=== PATIENT | female | born 1960 | race Caucasian/White ===

== ENCOUNTER 2022-11-03 18:53 | Emergency (ER) | payer OTHER, SELFPAY ==
--- OUTSIDE RECORDS SUMMARY | 2022-11-03 18:56 | XMS REPORT | Continuity of Care Document ---
:[address] [facility] t Address [address] [place] [address] Care Team Providers Name Role Phone Unavailable Unavailable Unavailable Problems This patient has no known problems. Allergies, Adverse Reactions, Alerts This patient has no known allergies or adverse reactions. Medications This patient has no known medications. Procedures This patient has no known procedures. Encounters Start End Encounter Admission Attending Care Care Encounter Source Date/Time Date/Time Type Type Clinicians Facility Department ID 2021-01-06 2021-01-06 Outpatient [facility] [id number] [place] 04:21:00 04:21:00 [facility] Results This patient has no known results.
[2022-11-03] MEDS ORDERED: LIDOCAINE 4% PATCH ONE (19:38)
[2022-11-03] MEDS ORDERED: methocarbamoL 500 MG TAB ONE (19:38)
[2022-11-03] MEDS ORDERED: KETOROLAC 30 MG/ML INJ ONE (19:38)
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
[2022-11-03] MEDS ORDERED: MORPHINE 15 MG IR TAB PO ONE (21:51)
[2022-11-03] MEDS ORDERED: ONDANSETRON 4 MG (ODT) TAB ONE (21:51)
[2022-11-03 22:47] VITALS: TEMP 97.8
[2022-11-03 22:52] VITALS: BP 153/97; O2SAT 97
== END 2022-11-03 22:37 | disposition home or self-care (01) ==
LOC: ER 18:53
DX: S32.029A Unspecified fracture of second lumbar vertebra, initial encounter for closed fracture (principal); V49.40XA Driver injured in collision with unspecified motor vehicles in traffic accident, initial encounter
CPT/HCPCS: 72131; 72128; 96372; 99284; Q0162; J2001